=== PATIENT | female | born 1950 | race Caucasian/White ===

== ENCOUNTER → 2017-09-03 | Outpatient (CLI) | payer MEDICARE ==
[~2017-09-03] MED LIST: LOSA1TAB37 PO; METO-408 PO
== END | disposition home or self-care (01) ==
LOC: RAH 09:01
PROVIDERS: ATTEND Obstetrics & Gynecology
DX: Z12.31 Encounter for screening mammogram for malignant neoplasm of breast (principal)
CPT/HCPCS: 77067

== ENCOUNTER → 2018-09-28 | Outpatient (CLI) | payer MEDICARE | END | disposition home or self-care (01) | LOC: RAH 15:30 | PROVIDERS: ATTEND Advanced Practice Midwife | DX: Z12.31 Encounter for screening mammogram for malignant neoplasm of breast (principal) | CPT/HCPCS: 77067 ==

== ENCOUNTER 2019-11-03 06:22 | Day surgery (SDC) | payer MEDICARE ==
[2019-10-28 12:47] LABS: BASOPHILS % (AUTO) 0.9 % (0.0-5.0); EOSINOPHILS % (AUTO) 2.3 % (0.0-8.0); HEMATOCRIT 36.7 % (36-48); LYMPHOCYTES % (AUTO) 22.5 % (21.0-51.0); MEAN CORPUSCULAR HEMOGLOBIN 37.4 pg (27.0-33.0); MEAN CORPUSCULAR HGB CONC 36.2 g/dL (32.0-36.0); MEAN CORPUSCULAR VOLUME 103.1 fL (79-99); MONOCYTES % (AUTO) 6.4 % (3.0-13.0); NEUTROPHILS % (AUTO) 67.6 % (40.0-77.0); PLATELET COUNT (AUTO) 213 K/uL (130-400); RED BLOOD CELL COUNT(AUTO) 3.56 MIL/uL (4.00-5.50); RED CELL DISTRIBUTION WIDTH 11.2 % (11.0-15.5)
[2019-10-28 13:13] LABS: CREATININE 0.9 mg/dL (0.5-1.5); POTASSIUM 4.4 mmol/L (3.5-5.1)
[2019-11-02 10:51] VITALS: BP 168/82
[~2019-11-03] VITALS: Ht 162.6 cm; Wt 68.1 kg
[2019-11-03] VITALS (17 sets, daily range): BP systolic 114–137; BP diastolic 44–75
[~2019-11-03 06:22] MED LIST changes: +CEFAZOLIN SODIUM 1 GM VIAL IVP SCH; +HYDR12.54 PO; -LOSA1TAB37 PO; +LOSA50TA64 PO; -METO-408 PO; +METO25TA6 PO
[2019-11-03] MEDS ORDERED: LACTATED RINGERS 1000ML 1,000 ML IV ONE (06:58)
[2019-11-03] MEDS ORDERED: SUCCINYLCHOLINE 200MG/10ML SYR ONE (08:00)
[2019-11-03] MEDS ORDERED: DEXAMETHASONE SOD PHOSPHATE 10MG/ML 1ML VIAL ONE (08:00)
[2019-11-03] MEDS ORDERED: LIDOCAINE PF 2% 5ML ABBOJECT ONE (08:00)
[2019-11-03] MEDS ORDERED: ROCURONIUM 10MG/1ML SYR 10 MG/ML ML ONE (08:01)
[2019-11-03] MEDS ORDERED: GLYCOPYRROLATE 1 MG/5 ML SYRINGE ONE (08:01)
[2019-11-03] MEDS ORDERED: NEOSTIGMINE 5MG/5ML SYR IV ONE (08:01)
[2019-11-03] MEDS ORDERED: MIDAZOLAM HCL 1 MG/ML 2ML VIAL ONE (08:01)
[2019-11-03] MEDS ORDERED: FENTANYL CITRATE PF 50 MCG/1 ML 2ML VIAL ONE (08:01)
[2019-11-03] MEDS ORDERED: PROPOFOL 10 MG/ML 20ML VIAL IV ONE (08:01)
[2019-11-03] MEDS ORDERED: MEPERIDINE-PF 25 MG/ML SYG ONE ×2 (08:48→09:52)
[2019-11-03] MEDS ORDERED: CEPH500B PO (09:38)
[2019-11-03] MEDS ORDERED: HYDR-4060 PO (09:38)
[2019-11-03] MEDS ORDERED: TYL3B PO (09:41)
--- NOTE | 2019-11-03 11:00 | NUR ---
CM Note: [facility] CM spoke to pt informed of MD recommendations for home with home health, pt agreeable. Telephone consent MARY JO obtained for [facility]. Faxed order and clinicals, confirmation received. Spoke to Blank garay/[facility], will coordinate with pt and Dr Pedraza. Pt safe to dc home via private car. Primary nurse aware. CM to cont to follow up.
--- NOTE | 2019-11-03 11:10 | NUR ---
discharge instructions provided to patient and patient's spouse (nayan davis). incision care instructions provided and follow up appointment provided as well as prescriptions called in by dr ogden.
--- NOTE | 2019-11-03 11:45 | NUR ---
dressing to left leg is dry and intact, starr wrap in place. no drainage or bleeding noted. patient discharged from facility via wheelchair and assisted into private vehicle driven by spouse.
== END 2019-11-03 11:45 | disposition home or self-care (01) ==
LOC: DAH 06:22
PROVIDERS: ATTEND Orthopaedic Surgery
DX: S82.144 Nondisplaced bicondylar fracture of right tibia (principal); I10 Essential (primary) hypertension; Z79.899 Other long term (current) drug therapy; Z79.82 Long term (current) use of aspirin; Z96.652 Presence of left artificial knee joint; Z87.891 Personal history of nicotine dependence; Z88.8 Allergy status to other drugs, medicaments and biological substances; Z11.59 Encounter for screening for other viral diseases; X58.XXXD Exposure to other specified factors, subsequent encounter
CPT/HCPCS: 27535; 36415; 73562; 80048; 85025; 93005; A4213; A4215; A4221; A4222; A4223; A4649; A4663; A4930 ×2; A5120; A6207; C1713; C1769; G0168; J0330; J0690; J1100; J2001; J2175 ×2; J2250; J2704; J2710; J3010; J3490; J7030; J7120 ×2; U0003

== ENCOUNTER 2020-01-18 16:00 | Inpatient (IN) | payer MEDICARE ==
[~2020-01-18] VITALS: Ht 160 cm; Wt 65.8 kg
[2020-01-18 12:04] LABS: BASOPHILS % (AUTO) 0.8 % (0.0-5.0); EOSINOPHILS % (AUTO) 2.7 % (0.0-8.0); LYMPHOCYTES % (AUTO) 17.8 % (21.0-51.0); MEAN CORPUSCULAR HEMOGLOBIN 37.6 pg (27.0-33.0); MEAN CORPUSCULAR HGB CONC 36.4 g/dL (32.0-36.0); MEAN CORPUSCULAR VOLUME 103.4 fL (79-99); NEUTROPHILS % (AUTO) 72.3 % (40.0-77.0); PLATELET COUNT (AUTO) 252 K/uL (130-400); RED BLOOD CELL COUNT(AUTO) 3.19 MIL/uL (4.00-5.50); RED CELL DISTRIBUTION WIDTH 10.8 % (11.0-15.5); WHITE BLOOD COUNT (AUTO) 7.7 K/uL (4.8-10.8)
[2020-01-18 12:47] LABS: CREATININE 0.9 mg/dL (0.5-1.5); POTASSIUM 4.5 mmol/L (3.5-5.1)
[~2020-01-18 16:00] MED LIST changes: -CEFAZOLIN SODIUM 1 GM VIAL IVP SCH; -METO25TA6 PO; +TYL3B PO
--- NOTE | 2020-01-21 10:19 | NUR ---
DR HOPKINS INFORMED OF ABNORMAL LABS- ORDERS FOR REPEAT BMP ON DAY OF PROCEDURE
--- NOTE | 2020-01-21 10:32 | NUR ---
LOW SODIUM REPORTED TO EFRAIN VILLEGAS
[2020-01-21 10:51] VITALS: BP 137/82
[2020-01-21] MEDS ORDERED: METO-408 PO (11:48)
--- NOTE | 2020-01-21 11:51 | NUR ---
DIFFICULTY WITH PRE-OP CALL DUE TO PHONE CONNECTION . WILL REATTEMPT LATER
[2020-01-24] VITALS (26 sets, daily range): BP systolic 99–144; BP diastolic 44–78
[2020-01-24] MEDS ORDERED: LACTATED RINGERS 1000ML 1,000 ML IV ONE (06:19)
[2020-01-24] MEDS ORDERED: CEFAZOLIN SODIUM 1 GM VIAL ONE ×4 (06:19→12:17)
[2020-01-24 07:05] LABS: CREATININE 1.1 mg/dL (0.5-1.5); POTASSIUM 4.3 mmol/L (3.5-5.1)
[2020-01-24] MEDS ORDERED: LIDOCAINE PF 2% 5ML ABBOJECT ONE (07:16)
[2020-01-24] MEDS ORDERED: SUCCINYLCHOLINE CHLORIDE 20 MG/ML 10 ML VIAL ONE (07:16)
[2020-01-24] MEDS ORDERED: ROCURONIUM 10MG/1ML SYR 10 MG/ML ML ONE (07:17)
[2020-01-24] MEDS ORDERED: FENTANYL CITRATE PF 50 MCG/1 ML 2ML VIAL ONE ×2 (07:17→09:41)
[2020-01-24] MEDS ORDERED: MIDAZOLAM HCL 1 MG/ML 2ML VIAL ONE (07:17)
[2020-01-24] MEDS ORDERED: PROPOFOL 10 MG/ML 20ML VIAL IV ONE (07:17)
[2020-01-24] MEDS ORDERED: ONDANSETRON HCL 4 MG/2 ML VIAL ONE (07:18)
[2020-01-24] MEDS ORDERED: ROPIVACAINE 0.5% 5MG/ML 30ML IJ ONE (07:21)
[2020-01-24] MEDS ORDERED: DEXAMETHASONE SOD PHOSPHATE 10MG/ML 1ML VIAL ONE (07:22)
[2020-01-24] MEDS ORDERED: CEFAZOLIN SODIUM 1 GM VIAL IVP ONE (08:00)
[2020-01-24] MEDS ORDERED: EPHEDRINE SULFATE 50 MG/ML AMPULE ONE (08:49)
[2020-01-24] MEDS ORDERED: MEPERIDINE-PF 25 MG/ML SYG ONE (11:04)
[2020-01-24] MEDS ORDERED: KETOROLAC TROMETHAMINE 30MG/ML ONE (11:04)
[2020-01-24] MEDS ORDERED: PHENYLEPHRINE HCL 10 MG/ML 1ML VIAL IV ONE (11:52)
[2020-01-24] MEDS ORDERED: DiphenhydrAMINE HCL 50 MG/ML VIAL IVP PRN (12:00)
[2020-01-24] MEDS: SODIUM CHLORIDE 0.9% 1000ML 1,000 ML IV SCH (12:00)
[2020-01-24] MEDS ORDERED: POTASSIUM CHLORIDE 20 MEQ ERTAB PO PRN (12:00)
[2020-01-24] MEDS ORDERED: LIDOCAINE HCL-MPF 1% 2ML VIAL IV PRN (12:00)
[2020-01-24] MEDS ORDERED: KETOROLAC TROMETHAMINE 15MG/ML IV PRN (12:00)
[2020-01-24] MEDS ORDERED: CALCIUM CARBONATE 500 MG TABLET PO PRN (12:00)
[2020-01-24] MEDS: PSYLLIUM SEED 1 EACH PACKET PO SCH (12:00)
[2020-01-24] MEDS ORDERED: POTASSIUM CHLORIDE 20MEQ/100ML 100 ML IV PRN (12:00)
[2020-01-24] MEDS ORDERED: ONDANSETRON HCL 4 MG/2 ML VIAL IVP PRN (12:00)
[2020-01-24] MEDS ORDERED: FERROUS FUMARATE 324 MG TABLET PO PRN (12:00)
[2020-01-24] MEDS ORDERED: DIPHENHYDRAMINE HCL 25 MG CAPSULE PO PRN (12:00)
[2020-01-24] MEDS ORDERED: POTASSIUM CHLORIDE 10% ELIXIR 20 MEQ/15 ML UDCUP PO PRN (12:00)
[2020-01-24] MEDS ORDERED: OXYCODONE HCL 5 MG TAB PO PRN ×2 (12:00)
[2020-01-24] MEDS: ACETAMINOPHEN EXTRA STRENGTH 500 MG TABLET PO SCH ×2 (12:00→19:50)
[2020-01-24] MEDS ORDERED: GLYCOPYRROLATE 1 MG/5 ML SYRINGE ONE (12:14)
[2020-01-24] MEDS ORDERED: NEOSTIGMINE 5MG/5ML SYR IV ONE (12:14)
[2020-01-24] MEDS: ENOXAPARIN SODIUM 40 MG/0.4 ML SYRINGE SQ SCH (12:40)
--- NOTE | 2020-01-24 14:25 | NUR ---
DC PLAN VISITED WITH PATIENT. PATIENT LIVES WITH SPOUSE. INDEPENDENT ABLE TO PERFORM ADLS. PATIENT HAS NO SERVICES. DME AVAILABLE WALKER, WHEEL CHAIR, CANE. FEELS SAFE TO RETURN HOME. Addendum: 01/24/20 at 1427 by JOHN HOOK RN CM Amended: Links added.
[2020-01-24] MEDS: CEFAZOLIN SODIUM 1 GM VIAL IVP SCH (19:49)
[2020-01-24] MEDS: FAMOTIDINE 20MG TAB 20 MG TAB PO SCH (19:51)
[2020-01-24] MEDS: PREGABALIN 25 MG CAP PO SCH (19:51)
[2020-01-24] MEDS: CELECOXIB 200 MG CAP PO SCH (19:51)
[2020-01-24] MEDS ORDERED: METOPROLOL SUCCINATE 50 MG TAB.SR.24H PO SCH (21:00)
[2020-01-25] MEDS: CEFAZOLIN SODIUM 1 GM VIAL IVP SCH (03:13)
[2020-01-25] MEDS: SODIUM CHLORIDE 0.9% 1000ML 1,000 ML IV SCH ×2 (03:14→08:00)
[2020-01-25] MEDS: ACETAMINOPHEN EXTRA STRENGTH 500 MG TABLET PO SCH ×2 (03:14→12:00)
[2020-01-25 03:45] VITALS: BP 117/70
[2020-01-25 04:05] LABS: HEMATOCRIT 25.3 % (36-48); MEAN CORPUSCULAR HEMOGLOBIN 38.1 pg (27.0-33.0); MEAN CORPUSCULAR VOLUME 105.9 fL (79-99); RED BLOOD CELL COUNT(AUTO) 2.39 MIL/uL (4.00-5.50); RED CELL DISTRIBUTION WIDTH 10.9 % (11.0-15.5); WHITE BLOOD COUNT (AUTO) 8.4 K/uL (4.8-10.8)
[2020-01-25 04:23] LABS: POTASSIUM 4.6 mmol/L (3.5-5.1)
[2020-01-25 07:52] VITALS: BP 123/67
[2020-01-25] MEDS ORDERED: TYL3B PO (08:25)
[2020-01-25] MEDS ORDERED: AEC81 PO (08:25)
[2020-01-25] MEDS: TRAMADOL HCL 50 MG TABLET PO PRN ×2 (08:39→15:21)
[2020-01-25] MEDS ORDERED: POLYETHYLENE GLYCOL 3350 17 GM POWD.PACK PO SCH (09:00)
[2020-01-25] MEDS ORDERED: HYDROCHLOROTHIAZIDE 25 MG TABLET PO SCH (09:00)
[2020-01-25] MEDS ORDERED: LOSARTAN 50 MG TABLET PO SCH (09:00)
[2020-01-25] MEDS: FAMOTIDINE 20MG TAB 20 MG TAB PO SCH (09:43)
[2020-01-25] MEDS: CELECOXIB 200 MG CAP PO SCH (09:43)
[2020-01-25] MEDS: ENOXAPARIN SODIUM 40 MG/0.4 ML SYRINGE SQ SCH (09:43)
[2020-01-25] MEDS: PREGABALIN 25 MG CAP PO SCH (09:44)
[2020-01-25 11:04] VITALS: BP 118/49
[2020-01-25] MEDS: PSYLLIUM SEED 1 EACH PACKET PO SCH (12:00)
--- NOTE | 2020-01-25 12:20 | NUR ---
[id number] patient signed MARLOW Letter, I faxed MARLOW Letter to [phone] and placed in chart under consent tab.
[2020-01-25] MEDS ORDERED: IPRATROPIUM/ALBUTEROL SULFATE 3 ML SOLUTION IH SCH (14:15)
--- NOTE | 2020-01-25 15:21 | NUR ---
Patient changed to inpt status. At 1510 patient signed IM Letter, I faxed IM Letter to [phone] and placed in chart under consent tab.
[2020-01-26] MEDS ORDERED: BISACODYL 5 MG TABLET.DR PO PRN (12:00)
[2020-01-27] MEDS ORDERED: BISACODYL 10 MG SUPP.RECT RC PRN (12:00)
== END 2020-01-25 16:10 | disposition home or self-care (01) | DRG 494 ==
LOC: DAHIP 01-24 06:02 → INTOOBSV 01-24 06:02 → OBSVTOIN 01-24 06:02 → 3AH 01-24 13:53
PROVIDERS: ADMIT Orthopaedic Surgery; ATTEND Orthopaedic Surgery
PROC: 0QSG04Z Reposition Right Tibia with Internal Fixation Device, Open Approach (ICD-10-PCS; principal; 2020-01-24 09:07)
PROC: 0QPG04Z Removal of Internal Fixation Device from Right Tibia, Open Approach (ICD-10-PCS; 2020-01-24 09:07)
DX: S82.221 Displaced transverse fracture of shaft of right tibia (principal); Z20.828 Contact with and (suspected) exposure to other viral communicable diseases; I10 Essential (primary) hypertension; Z96.652 Presence of left artificial knee joint; Z82.49 Family history of ischemic heart disease and other diseases of the circulatory system; W18.30XD Fall on same level, unspecified, subsequent encounter
CPT/HCPCS: 36415; 73590; 80048; 85025; 85027; 93005; 97039; G0378; J0330; J0690; J1100; J1650; J1885; J2001; J2175; J2250; J2370; J2405; J2704; J2710; J2795; J3010; J3490; J7120; Q0163; U0003

== ENCOUNTER → 2020-09-11 | Outpatient (CLI) | payer MEDICARE ==
[~2020-09-11] MED LIST changes: +AEC81 PO; +METO-408 PO
== END | disposition home or self-care (01) ==
LOC: RAH 11:53
PROVIDERS: ATTEND Obstetrics & Gynecology
DX: Z12.31 Encounter for screening mammogram for malignant neoplasm of breast (principal)
CPT/HCPCS: 77067

== ENCOUNTER 2021-07-30 09:25 | Inpatient (IN) | payer MEDICARE ==
[~2021-07-30] VITALS: Ht 160 cm; Wt 68.9 kg
[2021-07-30] VITALS (12 sets, daily range): BP systolic 98–130; BP diastolic 42–72
[2021-07-30 09:55] LABS: BASOPHILS % (AUTO) 0.3 % (0.0-5.0); HEMATOCRIT 34.8 % (36-48); LYMPHOCYTES % (AUTO) 5.1 % (21.0-51.0); MEAN CORPUSCULAR HEMOGLOBIN 32.4 pg (27.0-33.0); MEAN CORPUSCULAR HGB CONC 35.1 g/dL (32.0-36.0); MEAN CORPUSCULAR VOLUME 92.6 fL (79-99); MONOCYTES % (AUTO) 3.2 % (3.0-13.0); NEUTROPHILS % (AUTO) 91.1 % (40.0-77.0); PLATELET COUNT (AUTO) 171 K/uL (130-400); RED BLOOD CELL COUNT(AUTO) 3.76 MIL/uL (4.00-5.50); RED CELL DISTRIBUTION WIDTH 11.8 % (11.0-15.5); WHITE BLOOD COUNT (AUTO) 7.3 K/uL (4.8-10.8)
[2021-07-30] MEDS ORDERED: ONDANSETRON 4MG INJ IVP ONE (10:00)
[2021-07-30] MEDS ORDERED: HYDROMORPHONE 0.5 MG SYG (0.5MG/0.5ML) IVP ONE (10:00)
[2021-07-30] MEDS ORDERED: 0.9%NACL 1000ML 1,000 ML IV ONE (10:00)
[2021-07-30 10:09] LABS: CREATININE 1.4 mg/dL (0.5-1.5); POTASSIUM 3.9 mmol/L (3.5-5.1)
[2021-07-30 10:12] LABS: ALBUMIN 3.5 g/dL (3.5-5.0); BILIRUBIN,TOTAL 1.3 mg/dL (0.2-1.0); TOTAL PROTEIN, SERUM 7.3 g/dL (6.0-8.3)
[2021-07-30 11:27] LABS: APPEARANCE,URINE CLEAR (CLEAR); BILIRUBIN,URINE MODERATE (NEGATIVE); COLOR,URINE ORANGE (YELLOW); GLUCOSE, URINE (UA) NEGATIVE (NEGATIVE); KETONES,URINE 5 mg/dL (NEGATIVE); LEUKOCYTE ESTERASE ,URINE NEGATIVE (NEGATIVE); NITRATE,URINE NEGATIVE (NEGATIVE); OCCULT BLOOD,URINE NEGATIVE (NEGATIVE); PH,URINE 5.5 (5.0-8.0); PROTEIN,URINE 30 mg/dL (NEGATIVE)
[2021-07-30] MEDS ORDERED: ZOSYN 3.375GM +NS 50ML IV SCH ×2 (11:30→16:00)
[2021-07-30 11:42] LABS: BACTERIA,URINE Few /HPF (None Seen); MUCUS,URINE Moderate LPF (None Seen); RBC,URINE 0-1 /HPF (0-1); SQUAMOUS EPITHELIAL CELL,UR Moderate /HPF (0-2)
[2021-07-30] MEDS ORDERED: PANTOPRAZOLE 40 MG/VIAL IVP ONE (12:00)
[2021-07-30] MEDS: PANTOPRAZOLE 40 MG/VIAL IVP SCH (12:13)
[2021-07-30] MEDS: FLUCONAZOLE 200 MG/NS 100 ML 100 ML IV SCH (12:13)
[2021-07-30] MEDS: LACTATED RINGERS 1000ML 1,000 ML IV SCH (12:13)
[2021-07-30 12:34] LABS: INR 1.1 (0.85-1.15); PROTHROMBIN TIME 11.9 SEC (9.6-11.6)
[2021-07-30 12:36] LABS: PARTIAL THROMBOPLASTIN TIME 31.1 SEC (26.3-35.5)
[2021-07-30 12:45] LABS: B-TYPE NATRIURETIC PEPTIDE 81 pg/mL (0-100)
[2021-07-30 13:23] LABS: ERYTHROCYTE SEDIMENTATION RATE 53 MM/HR (0-30)
[2021-07-30] MEDS ORDERED: ONDANSETRON 4MG INJ IVP PRN (17:30)
[2021-07-30] MEDS: HYDROMORPHONE 0.5 MG SYG (0.5MG/0.5ML) IVP PRN ×2 (17:34→22:07)
[2021-07-30] MEDS: MAGNESIUM 2GM PREMIX 50ML 50 ML IV SCH (17:48)
[2021-07-30] MEDS: ZOSYN 3.375GM +NS 50ML IV SCH (19:49)
[2021-07-31] VITALS (20 sets, daily range): BP systolic 100–129; BP diastolic 49–74
[2021-07-31] MEDS: ZOSYN 3.375GM +NS 50ML IV SCH ×3 (03:01→19:54)
[2021-07-31] MEDS: HYDROMORPHONE 0.5 MG SYG (0.5MG/0.5ML) IVP PRN ×3 (03:44→12:37)
[2021-07-31 03:50] LABS: BASOPHILS % (AUTO) 0.6 % (0.0-5.0); EOSINOPHILS % (AUTO) 0.6 % (0.0-8.0); HEMATOCRIT 30.9 % (36-48); LYMPHOCYTES % (AUTO) 5.8 % (21.0-51.0); MEAN CORPUSCULAR HEMOGLOBIN 32.1 pg (27.0-33.0); MEAN CORPUSCULAR VOLUME 94.5 fL (79-99); MONOCYTES % (AUTO) 4.1 % (3.0-13.0); NEUTROPHILS % (AUTO) 88.6 % (40.0-77.0); PLATELET COUNT (AUTO) 144 K/uL (130-400); RED BLOOD CELL COUNT(AUTO) 3.27 MIL/uL (4.00-5.50); RED CELL DISTRIBUTION WIDTH 11.9 % (11.0-15.5); WHITE BLOOD COUNT (AUTO) 6.9 K/uL (4.8-10.8)
[2021-07-31] MEDS: 0.9%NACL 1000ML 1,000 ML IV SCH (04:15)
[2021-07-31 04:27] LABS: ALBUMIN 2.5 g/dL (3.5-5.0); BILIRUBIN,DIRECT 0.5 mg/dL (0.0-0.3); BILIRUBIN,TOTAL 0.9 mg/dL (0.2-1.0); CREATININE 1.2 mg/dL (0.5-1.5); POTASSIUM 3.9 mmol/L (3.5-5.1); TOTAL PROTEIN, SERUM 5.9 g/dL (6.0-8.3)
[2021-07-31] MEDS: LACTATED RINGERS 1000ML 1,000 ML IV SCH (04:45)
[2021-07-31 05:56] LABS: ERYTHROCYTE SEDIMENTATION RATE 95 MM/HR (0-30)
[2021-07-31] MEDS ORDERED: DIATR MEGLU/DIATRIZOATE SODIUM 30 ML BOTTLE ONE (08:00)
[2021-07-31] MEDS: FLUCONAZOLE 200 MG/NS 100 ML 100 ML IV SCH (08:15)
[2021-07-31] MEDS: PANTOPRAZOLE 40 MG/VIAL IVP SCH (08:15)
[2021-07-31] MEDS ORDERED: FLUCONAZOLE 200 MG/NS 100 ML 100 ML IV SCH (09:00)
[2021-07-31] MEDS ORDERED: IOHEXOL-350 75 ML VIAL IV ONE (11:11)
[2021-07-31] MEDS: KETOROLAC 30MG VIAL (30MG/ML) IV SCH (19:54)
[2021-07-31] MEDS: METRONIDAZOLE 500MG/100ML BAG 100 ML IVPB SCH (19:54)
[2021-07-31] MEDS ORDERED: LACTATED RINGERS 1000ML 500 ML IV SCH (22:30)
[2021-07-31] MEDS ORDERED: 0.9%NACL 1000ML 1,000 ML IV SCH (22:30)
[2021-07-31] MEDS ORDERED: LACTATED RINGERS 1000ML 1,000 ML IV SCH (23:00)
[2021-07-31] MEDS: METOPROLOL TARTRATE 1 MG/ML 5ML VIAL IV SCH (23:06)
[2021-08-01] VITALS (9 sets, daily range): BP systolic 111–132; BP diastolic 53–67
[2021-08-01] MEDS: KETOROLAC 30MG VIAL (30MG/ML) IV SCH ×4 (02:52→20:41)
[2021-08-01] MEDS: ZOSYN 3.375GM +NS 50ML IV SCH ×3 (02:52→20:41)
[2021-08-01] MEDS: METRONIDAZOLE 500MG/100ML BAG 100 ML IVPB SCH ×3 (02:54→20:41)
[2021-08-01 03:42] LABS: BASOPHILS % (AUTO) 0.5 % (0.0-5.0); EOSINOPHILS % (AUTO) 1.1 % (0.0-8.0); HEMATOCRIT 28.4 % (36-48); LYMPHOCYTES % (AUTO) 4.8 % (21.0-51.0); MEAN CORPUSCULAR HEMOGLOBIN 32.3 pg (27.0-33.0); MEAN CORPUSCULAR HGB CONC 34.2 g/dL (32.0-36.0); MEAN CORPUSCULAR VOLUME 94.7 fL (79-99); MONOCYTES % (AUTO) 3.5 % (3.0-13.0); NEUTROPHILS % (AUTO) 88.9 % (40.0-77.0); PLATELET COUNT (AUTO) 144 K/uL (130-400); RED CELL DISTRIBUTION WIDTH 11.9 % (11.0-15.5); WHITE BLOOD COUNT (AUTO) 9.2 K/uL (4.8-10.8)
[2021-08-01 03:57] LABS: ALBUMIN 2.2 g/dL (3.5-5.0); BILIRUBIN,TOTAL 0.7 mg/dL (0.2-1.0); TOTAL PROTEIN, SERUM 5.6 g/dL (6.0-8.3)
[2021-08-01] MEDS: POTASSIUM CHLORIDE 20 MEQ/100 ML BAG IV SCH (04:47)
[2021-08-01] MEDS: METOPROLOL TARTRATE 1 MG/ML 5ML VIAL IV SCH (05:02)
[2021-08-01] MEDS: MAGNESIUM 2GM PREMIX 50ML 50 ML IV SCH (06:18)
[2021-08-01] MEDS: PANTOPRAZOLE 40 MG/VIAL IVP SCH (08:01)
[2021-08-01] MEDS: FLUCONAZOLE 200 MG/NS 100 ML 100 ML IV SCH (08:02)
[2021-08-01] MEDS ORDERED: METOPROLOL TARTRATE 1 MG/ML 5ML VIAL IV PRN (09:00)
[2021-08-01] MEDS: 0.9%NACL 1000ML 1,000 ML IV SCH ×3 (17:53→23:42)
[2021-08-01 19:40] LABS: MEAN CORPUSCULAR HEMOGLOBIN 32.5 pg (27.0-33.0); MEAN CORPUSCULAR HGB CONC 34.7 g/dL (32.0-36.0); MEAN CORPUSCULAR VOLUME 93.8 fL (79-99); PLATELET COUNT (AUTO) 134 K/uL (130-400); WHITE BLOOD COUNT (AUTO) 11.5 K/uL (4.8-10.8)
[2021-08-01 20:05] LABS: BAND NEUTROPHILS % (MANUAL) 2 % (0-2); EOSINOPHILS % (MANUAL) 2 % (1-6); LYMPHOCYTES % (MANUAL) 8 % (22-44); MAN.DIFF COMMENT-IMPRESSION MANUAL DIFFERENTIAL; MONOCYTES % (MANUAL) 4 % (2-9); SEGMENTED NEUTROPHILS % 84 % (40-70)
[2021-08-01 20:06] LABS: PLATELET MORPHOLOGY COMMENT ADEQUATE
[2021-08-02] MEDS: KETOROLAC 30MG VIAL (30MG/ML) IV SCH ×4 (02:11→20:22)
[2021-08-02 03:09] VITALS: BP 109/55
[2021-08-02] MEDS: METRONIDAZOLE 500MG/100ML BAG 100 ML IVPB SCH ×3 (03:25→20:23)
[2021-08-02] MEDS: POTASSIUM CHLORIDE 20 MEQ/100 ML BAG IV SCH (03:26)
[2021-08-02] MEDS: ZOSYN 3.375GM +NS 50ML IV SCH ×3 (03:59→20:23)
[2021-08-02] MEDS: 0.9%NACL 1000ML 1,000 ML IV SCH ×2 (04:21→20:23)
[2021-08-02 04:53] LABS: BASOPHILS % (AUTO) 0.5 % (0.0-5.0); EOSINOPHILS % (AUTO) 2.8 % (0.0-8.0); HEMATOCRIT 26.6 % (36-48); MEAN CORPUSCULAR HEMOGLOBIN 32.7 pg (27.0-33.0); MEAN CORPUSCULAR HGB CONC 34.6 g/dL (32.0-36.0); MEAN CORPUSCULAR VOLUME 94.7 fL (79-99); MONOCYTES % (AUTO) 5.2 % (3.0-13.0); NEUTROPHILS % (AUTO) 84.3 % (40.0-77.0); PLATELET COUNT (AUTO) 144 K/uL (130-400); RED BLOOD CELL COUNT(AUTO) 2.81 MIL/uL (4.00-5.50); RED CELL DISTRIBUTION WIDTH 12.1 % (11.0-15.5); WHITE BLOOD COUNT (AUTO) 8.4 K/uL (4.8-10.8)
[2021-08-02 05:24] LABS: ALBUMIN 2.1 g/dL (3.5-5.0); BILIRUBIN,TOTAL 0.6 mg/dL (0.2-1.0); TOTAL PROTEIN, SERUM 5.3 g/dL (6.0-8.3)
[2021-08-02] MEDS ORDERED: KCL 20 MEQ ERTAB PO ONE (05:58)
[2021-08-02] MEDS ORDERED: KCL 20 MEQ ERTAB PO SCH (06:53)
[2021-08-02 07:40] VITALS: BP 125/66
[2021-08-02] MEDS: FLUCONAZOLE 200 MG/NS 100 ML 100 ML IV SCH (09:41)
[2021-08-02] MEDS: PANTOPRAZOLE 40 MG/VIAL IVP SCH (09:42)
[2021-08-02 11:40] VITALS: BP 142/70
[2021-08-02 15:40] VITALS: BP 132/76
[2021-08-02 20:07] VITALS: BP 135/70
[2021-08-02 23:35] VITALS: BP 127/73
[2021-08-03] MEDS: KETOROLAC 30MG VIAL (30MG/ML) IV SCH ×2 (02:06→09:40)
[2021-08-03] MEDS: METRONIDAZOLE 500MG/100ML BAG 100 ML IVPB SCH ×2 (03:05→13:00)
[2021-08-03] MEDS: 0.9%NACL 1000ML 1,000 ML IV SCH (03:05)
[2021-08-03] MEDS: ZOSYN 3.375GM +NS 50ML IV SCH ×2 (03:05→13:00)
[2021-08-03] MEDS: POTASSIUM CHLORIDE 20 MEQ/100 ML BAG IV SCH (03:05)
[2021-08-03 03:33] VITALS: BP 141/70
[2021-08-03 05:10] LABS: BASOPHILS % (AUTO) 0.4 % (0.0-5.0); EOSINOPHILS % (AUTO) 3.8 % (0.0-8.0); HEMATOCRIT 25.1 % (36-48); LYMPHOCYTES % (AUTO) 7.9 % (21.0-51.0); MEAN CORPUSCULAR HEMOGLOBIN 33.2 pg (27.0-33.0); MEAN CORPUSCULAR HGB CONC 35.1 g/dL (32.0-36.0); MEAN CORPUSCULAR VOLUME 94.7 fL (79-99); MONOCYTES % (AUTO) 6.5 % (3.0-13.0); NEUTROPHILS % (AUTO) 79.8 % (40.0-77.0); PLATELET COUNT (AUTO) 159 K/uL (130-400); RED BLOOD CELL COUNT(AUTO) 2.65 MIL/uL (4.00-5.50); RED CELL DISTRIBUTION WIDTH 12.6 % (11.0-15.5); WHITE BLOOD COUNT (AUTO) 9.9 K/uL (4.8-10.8)
[2021-08-03 05:24] LABS: POTASSIUM 3.2 mmol/L (3.5-5.1)
[2021-08-03 08:00] VITALS: BP 134/77
[2021-08-03] MEDS ORDERED: DIATR MEGLU/DIATRIZOATE SODIUM 30 ML BOTTLE ONE (08:00)
[2021-08-03] MEDS: FLUCONAZOLE 200 MG/NS 100 ML 100 ML IV SCH (09:41)
[2021-08-03] MEDS: PANTOPRAZOLE 40 MG/VIAL IVP SCH (09:41)
[2021-08-03] MEDS ORDERED: IOHEXOL 350 MG/ML 100ML INFUS..BTL IV ONE (11:36)
[2021-08-03 12:00] VITALS: BP 140/86
[2021-08-03 16:00] VITALS: BP 139/76
== END 2021-08-03 18:00 | disposition home or self-care (01) | DRG 372 ==
LOC: EDH 09:25 → EDHIP 11:34 → 2CH 17:25 → 3DH 08-01 16:42
PROVIDERS: ADMIT Internal Medicine; ATTEND Internal Medicine
DX: K65.0 Generalized (acute) peritonitis (principal); E87.2 Acidosis; N17.9 Acute kidney failure, unspecified; E87.1 Hypo-osmolality and hyponatremia; M81.0 Age-related osteoporosis without current pathological fracture; I10 Essential (primary) hypertension; E87.6 Hypokalemia; E78.5 Hyperlipidemia, unspecified; M19.90 Unspecified osteoarthritis, unspecified site; R53.81 Other malaise; Z20.822 Contact with and (suspected) exposure to COVID-19; Z96.652 Presence of left artificial knee joint; Z88.5 Allergy status to narcotic agent; Z91.018 Allergy to other foods; Z80.9 Family history of malignant neoplasm, unspecified; Z82.49 Family history of ischemic heart disease and other diseases of the circulatory system; Z82.0 Family history of epilepsy and other diseases of the nervous system; Z82.5 Family history of asthma and other chronic lower respiratory diseases; Z83.3 Family history of diabetes mellitus; Z82.3 Family history of stroke; Z83.2 Family history of diseases of the blood and blood-forming organs and certain disorders involving the immune mechanism
CPT/HCPCS: 36415; 74176; 74177; 74178; 80048; 80053; 80076; 81001; 82150; 83605; 83690; 83735; 83880; 84145; 84484; 85025; 85610; 85651; 85730; 86140; 87635; 93005; 99291; C9113; G0378; J1170; J1450; J1885; J2405; J2543; J3475; J3480; J3490; J7030; J7120; Q9963; Q9967

== ENCOUNTER → 2025-02-11 | Outpatient (CLI) | payer MEDICARE ==
[~2025-02-11] MED LIST changes: -AEC81 PO; +ASCO500T19 PO; +CHOL-4 PO; -HYDR12.54 PO; +IBAN150T21 PO; +KETO10 PO; +LEVO750T90 PO; +LOSA25TA41 PO; -LOSA50TA64 PO; +METO-391 PO; -METO-408 PO; +METR-172 PO; -TYL3B PO; +ZOLP-684 PO
--- NOTE | 2025-02-12 09:51 | HMCIMG ---
EXAM: CT Lumbar Spine without IV contrast. CLINICAL HISTORY: Radiculopathy, lumbar region. TECHNIQUE: Axial computed tomography images of the lumbar spine without intravenous contrast. Sagittal and coronal reformatted images were generated. COMPARISON: Prior MRI dated January 18, 2025. FINDINGS: ALIGNMENT: Mild levoscoliosis of the lumbar spine is noted. Mild retrolisthesis of L2 over L3 and mild anterolisthesis of L3 over L4. DISCS/DEGENERATIVE CHANGES: There is multilevel severe degenerative disease with markedly reduced intervertebral disc space at L1???L2, L2???L3, L3???L4, L4???L5, and L5???S1. Intradiscal air foci are seen at L2???L3, L4???L5, and L5???S1, consistent with vacuum phenomenon. Severely reduced disc spaces are associated with subchondral cysts and marginal sclerosis. FACET JOINTS: Facetal arthropathy is present at bilateral L3???L4, L4???L5, and L5???S1, as well as at the right L2???L3 joint. Bilateral sacroiliac joint vacuum phenomenon is also seen. BONES: Diffuse osteopenia is present. The L4 vertebral body shows reduced height. No acute fracture or aggressive osseous lesion is identified. SOFT TISSUES: The soft tissues are unremarkable. Colonic diverticulosis is incidentally noted. IMPRESSION: No fracture or dislocation in the lumbar spine. Multilevel severe lumbar degenerative disc disease with vacuum phenomenon, subchondral cysts, marginal sclerosis, and diffuse osteopenia- Advanced degenerative lumbar spondylosis. Mild levoscoliosis with retrolisthesis of L2 over L3 and anterolisthesis of L3 over L4. Reduced vertebral height at L4. Associated multilevel facetal arthropathy and sacroiliac joint changes. MRI is recommended for better evaluation of nerve root compression and spinal canal stenosis. /[place]
== END | disposition home or self-care (01) ==
LOC: RAH 12:32
PROVIDERS: ATTEND Physical Medicine & Rehabilitation
DX: M47.817 Spondylosis without myelopathy or radiculopathy, lumbosacral region (principal); M47.26 Other spondylosis with radiculopathy, lumbar region; M43.16 Spondylolisthesis, lumbar region; M48.061 Spinal stenosis, lumbar region without neurogenic claudication; M51.16 Intervertebral disc disorders with radiculopathy, lumbar region; M85.88 Other specified disorders of bone density and structure, other site; M41.86 Other forms of scoliosis, lumbar region
CPT/HCPCS: 72131

== ENCOUNTER → 2025-04-12 | Outpatient (CLI) | payer MEDICARE ==
--- NOTE | 2025-04-25 15:06 | HMCIMG ---
CLINICAL INDICATION: Osteoporosis without current pathological fracture COMPARISON: None available TECHNIQUE: Bone densitometry is performed of the lumbar spine and left hip. FINDINGS: Total BMD of lumbar spine is 1.238 g/cm2 with a T-score of 1.7 and Z-score is 4.0. Total BMD of left hip is 0.786 g/cm2 with a T-score of -1.3 and Z-score is 0.4. FRAX SCORE: The 10 year fracture risk for a major osteoporotic fracture and hip fracture 13% IMPRESSION: 1. Osteopenia of the left hip 2. Normal lumbar spine 3. I would recommend follow-up in 13 months. World Health Organization criteria for BMD interpretation classify patients as Normal (T-score at or above -1.0), Osteopenic (T-score between -1.0 and -2.5), or Osteoporotic (T-score at or below -2.5). FRAX SCORE: A. All treatment decisions require clinical judgment and consideration of individual patient factors, including patient preferences, comorbidities, previous drug use, risk factors not captured in the FRAX model (e.g., frailty, falls, vitamin D deficiency, increased bone turnover, interval significant decline in bone density) and possible [id number]-mb-nyme-estimation of fracture risk by FRAX. B. In addition, the NOF Guide recommends that FDA-approved medical therapies be considered in postmenopausal women and men age greater than or equal to 50 years with a: i. Hip or vertebral (clinical or morphometric) fracture. ii. T-score of less than or equal to -2.5 at the spine or hip. iii. Ten-year fracture probability by FRAX of greater than or equal to 3% for hip fracture of greater than or equal to 20% for major osteoporotic fracture.
== END | disposition home or self-care (01) ==
LOC: RAH 08:13
PROVIDERS: ATTEND Neurological Surgery
DX: M81.0 Age-related osteoporosis without current pathological fracture (principal); M85.852 Other specified disorders of bone density and structure, left thigh
CPT/HCPCS: 77080

== ENCOUNTER → 2025-04-13 | Outpatient (CLI) | payer MEDICARE ==
--- NOTE | 2025-04-14 05:47 | HMCIMG ---
EXAM: MR THORACIC SPINE WITHOUT CONTRAST CLINICAL HISTORY: Other secondary scoliosis, lumbar region. TECHNIQUE: Multiplanar and multisequence MR images of the thoracic spine obtained without IV contrast. CONTRAST: None. COMPARISON: No priors are available for comparison. FINDINGS: VERTEBRAE: Subacute appearing compression fracture of T7 vertebra with anterior vertebral body height reduction by 80%-90%. There is involvement of both superior and inferior endplates with sparing of the posterior vertebral body margin, consistent with A2 variant of AO classification of spine fractures. Minimal residual bone edema is present within fractured T7 vertebra as well as the posterior elements. Anterior and posterior marginal osteophytes and Modic type II endplate changes are present at multiple levels in the thoracic spine. VERTEBRAL ALIGNMENT: Scoliosis of the thoracolumbar spine with S shaped configuration. The Lipscomb's angle measures 8 with the apex of the scoliosis at the level of L3. Focal exaggerated thoracic kyphotic deformity is present at the level of the fracture. Grade I anterolisthesis of T1 over T2 and T2 over T3 levels. DISCS: Diffuse disc desiccative changes at all levels. T1-T2 level demonstrates small central and bilateral paracentral disc protrusions causing grade I central canal narrowing, without significant neural foraminal stenosis or nerve root impingement. T6-T7 disc demonstrates a small central disc protrusion causing grade I central canal narrowing, without significant neural foraminal stenosis or nerve root impingement. Bilateral moderate facet arthropathy is present at the T6-T7 level. T7-T8 level disc demonstrates a moderate sized central and bilateral paracentral disc protrusion causing grade II central canal narrowing without significant neural foraminal stenosis or nerve root impingement. Bilateral moderate facet arthropathy is present at T7-T8 level. Mild edema of the facet joints capsules is present at T7-T8 level bilaterally. The rest of the disc levels do not show significant herniation, central canal, neural foraminal stenosis. CORD: The thoracic cord demonstrates normal caliber and signal intensity without thinning or cord edema. Normal conus medularis. SOFT TISSUES: Large effusions in the bilateral shoulder joints, right greater than the left. Edema of the interspinous ligament at T7-T8 level. IMPRESSION: 1. Subacute appearing compression fracture of T7 vertebra with minimal residual bone edema and focal kyphotic deformity, consistent with A2 variant of AO classification of spine fractures 2. Scoliosis of the thoracolumbar spine with S shaped configuration and Lipscomb's angle of 8, apex at L3 3. Grade I anterolisthesis of T1 over T2 and T2 over T3. . 4. Moderate sized central and bilateral paracentral disc protrusion at T7-T8 causing grade II central canal narrowing without significant neural foraminal stenosis or nerve root impingement; bilateral moderate facet arthropathy and mild edema of the facet joint capsules at T7-T8. 5. Small central disc protrusion at T6-T7 causing grade I central canal narrowing without significant neural foraminal stenosis or nerve root impingement; bilateral moderate facet arthropathy at T6-T7. 6. Thoracic cord of normal caliber and signal without thinning or edema 7. Interspinous ligament edema at T7-T8, which may represent grade I sprain. 8. Extensive thoracic spondylosis with multilevel degenerative disc disease. 9. Large effusions in the bilateral shoulder joints, right greater than the left. Recommend MRI of both shoulder joints, if clinically appropriate. /[place]
== END | disposition home or self-care (01) ==
LOC: RAH 12:47
PROVIDERS: ATTEND Family Medicine Sports Medicine
DX: M48.54XA Collapsed vertebra, not elsewhere classified, thoracic region, initial encounter for fracture (principal); M47.814 Spondylosis without myelopathy or radiculopathy, thoracic region; M41.85 Other forms of scoliosis, thoracolumbar region; M43.14 Spondylolisthesis, thoracic region; M51.24 Other intervertebral disc displacement, thoracic region; M48.04 Spinal stenosis, thoracic region; M25.412 Effusion, left shoulder; M25.411 Effusion, right shoulder; M25.78 Osteophyte, vertebrae; M51.34 Other intervertebral disc degeneration, thoracic region
CPT/HCPCS: 72146